=== PATIENT | female | born 1935 | race Caucasian/White ===

== ENCOUNTER → 2016-05-04 | Outpatient (CLI) | payer MEDICARE, OTHER | END | disposition home or self-care (01) | LOC: PCVCCLINIC 12:00 | PROVIDERS: ATTEND Internal Medicine Cardiovascular Disease | DX: I25.10 Atherosclerotic heart disease of native coronary artery without angina pectoris (principal); I10 Essential (primary) hypertension; E78.00 Pure hypercholesterolemia, unspecified | CPT/HCPCS: 80061; 93005; G0463 ==

== ENCOUNTER → 2016-07-09 | Outpatient (CLI) | payer MEDICARE, OTHER | END | disposition home or self-care (01) | LOC: PCVCCLINIC 11:20 | PROVIDERS: ATTEND Internal Medicine Cardiovascular Disease | DX: I25.10 Atherosclerotic heart disease of native coronary artery without angina pectoris (principal); I10 Essential (primary) hypertension; E78.00 Pure hypercholesterolemia, unspecified; R07.9 Chest pain, unspecified; R09.89 Other specified symptoms and signs involving the circulatory and respiratory systems | CPT/HCPCS: 93005; G0463 ==

== ENCOUNTER → 2016-07-15 | Outpatient (CLI) | payer MEDICARE, OTHER ==
[~2016-07-15] MED LIST: REGADENOSON 0.4 MG/5 ML DISP.SYRIN. IV ONE
== END | disposition home or self-care (01) ==
LOC: PCVCIMAG 08:26
PROVIDERS: ATTEND Internal Medicine Cardiovascular Disease
DX: I65.23 Occlusion and stenosis of bilateral carotid arteries (principal); I25.10 Atherosclerotic heart disease of native coronary artery without angina pectoris; R07.9 Chest pain, unspecified; I44.7 Left bundle-branch block, unspecified; Z95.5 Presence of coronary angioplasty implant and graft
CPT/HCPCS: 78452; 93017; 93880; A9500; J2785

== ENCOUNTER → 2017-01-25 | Outpatient (CLI) | payer MEDICARE, OTHER | END | disposition home or self-care (01) | LOC: PCVCCLINIC 13:00 | PROVIDERS: ATTEND Internal Medicine Cardiovascular Disease | DX: I25.10 Atherosclerotic heart disease of native coronary artery without angina pectoris (principal); I10 Essential (primary) hypertension; I77.9 Disorder of arteries and arterioles, unspecified; I87.2 Venous insufficiency (chronic) (peripheral); E78.00 Pure hypercholesterolemia, unspecified; E11.9 Type 2 diabetes mellitus without complications; E03.9 Hypothyroidism, unspecified; Z79.82 Long term (current) use of aspirin; Z79.84 Long term (current) use of oral hypoglycemic drugs; Z88.2 Allergy status to sulfonamides | CPT/HCPCS: 80061; 93005; G0463 ==

== ENCOUNTER → 2017-07-08 | Outpatient (CLI) | payer MEDICARE, OTHER | END | disposition home or self-care (01) | LOC: PCVCIMAG 11:02 | DX: I25.10 Atherosclerotic heart disease of native coronary artery without angina pectoris (principal); I10 Essential (primary) hypertension; R00.1 Bradycardia, unspecified; R07.89 Other chest pain; Z95.5 Presence of coronary angioplasty implant and graft | CPT/HCPCS: 93306 ==

== ENCOUNTER → 2017-11-10 | Outpatient (CLI) | payer MEDICARE, OTHER | END | disposition home or self-care (01) | LOC: PCVCIMAG 12:38 | DX: I25.10 Atherosclerotic heart disease of native coronary artery without angina pectoris (principal); I10 Essential (primary) hypertension; I49.5 Sick sinus syndrome; E78.00 Pure hypercholesterolemia, unspecified; I77.9 Disorder of arteries and arterioles, unspecified; I87.2 Venous insufficiency (chronic) (peripheral); M79.89 Other specified soft tissue disorders; Z95.0 Presence of cardiac pacemaker | CPT/HCPCS: 80061; 93005; 93970; G0463 ==

== ENCOUNTER → 2017-11-19 | Outpatient (CLI) | payer MEDICARE, OTHER ==
[~2017-11-19] MED LIST changes: +DIAZEPAM 10 MG TABLET.; +IOHEXOL 300 MG/ML 100ML VIAL.; +IV NORMAL SALINE 500ML BAG 500 ML; +LIDOCAINE 1% PF 30 ML VIAL.; +MIDAZOLAM HCL/PF 2 MG/2 ML VIAL.; -REGADENOSON 0.4 MG/5 ML DISP.SYRIN. IV ONE; +fentaNYL PF VIAL 100 MCG/2 ML VIAL
== END | disposition home or self-care (01) ==
LOC: PCVCINTER 12:12
DX: I87.2 Venous insufficiency (chronic) (peripheral) (principal); I87.309 Chronic venous hypertension (idiopathic) without complications of unspecified lower extremity; I25.10 Atherosclerotic heart disease of native coronary artery without angina pectoris; I10 Essential (primary) hypertension; Z95.0 Presence of cardiac pacemaker; E78.00 Pure hypercholesterolemia, unspecified; I49.5 Sick sinus syndrome
CPT/HCPCS: 36012; 37252; 37253; 75822; 75825; 76937; 99152; 99153; C1751; C1753; C1769; C1894; J1644; J2250; J3010; J7040; Q9967

== ENCOUNTER → 2017-12-27 | Outpatient (CLI) | payer MEDICARE, OTHER ==
[~2017-12-27] MED LIST changes: +ARNICA TOPICAL GEL 1.5OZ TUBE. TP ONE; -DIAZEPAM 10 MG TABLET.; +DIAZEPAM 10 MG TABLET. ONE; +DOXYCYCLINE HYCLATE 100 MG TABLET ONE; -IOHEXOL 300 MG/ML 100ML VIAL.; +IV NORMAL SALINE 1000ML BAG 1,000 ML ONE; -IV NORMAL SALINE 500ML BAG 500 ML; -LIDOCAINE 1% PF 30 ML VIAL.; +LIDOCAINE 1%/EPI 1:100,000 20 ML VIAL. ONE; -MIDAZOLAM HCL/PF 2 MG/2 ML VIAL.; +SODIUM BICARBONATE 50 MEQ/50 ML VIAL. ONE; -fentaNYL PF VIAL 100 MCG/2 ML VIAL
--- NOTE | 2017-12-27 18:35 | PCVCINTER ---
EXAM: LEFT GREAT SAPHENOUS VEIN ENDOVENOUS LASER ABLATION INDICATION: Chronic Venous Insufficiency Class 4a. Leg pain and swelling. Failed conservative therapy including medical grade compression stockings for at least 3 months. Venous hypertension chronic. PROCEDURE: Procedure and risks of endovenous laser ablation including thrombosis, vascular injury, nerve injury, skin necrosis, and infection were discussed with the patient and consent obtained. The left leg was prepped and draped in the normal sterile fashion. Using ultrasound guidance access into the left great saphenous vein was obtained and a 5F 50 cm long catheter was advanced to 2 cm below the saphenofemoral junction. The laser fiber was advanced through the catheter to its tip and the catheter partially retracted. Abundant tumescent anesthesia using a dilute lidocaine solution was given in the perivenous tissues throughout the length of the laser fiber. Ultrasound confirmed good position of the distal tip of the laser fiber as well as direct transcutaneous visualization. The 1470 Dornier laser was set to 6 smiley and a slow continuous pull-back technique employed to deliver 2045 Joules throughout the treated segment. Catheter and fiber were removed and hemostasis obtained. No immediate complications. The leg was dressed and wrapped appropriately and reinforced with a compression stocking. IMPRESSION: Satisfactory endovenous laser ablation of the left great saphenous vein. LOC:[id number]
== END | disposition home or self-care (01) ==
LOC: PCVCINTER 13:02
PROVIDERS: ATTEND Nuclear Medicine Nuclear Cardiology
DX: I83.812 Varicose veins of left lower extremity with pain (principal); I87.2 Venous insufficiency (chronic) (peripheral); I25.10 Atherosclerotic heart disease of native coronary artery without angina pectoris; E11.9 Type 2 diabetes mellitus without complications; I10 Essential (primary) hypertension; E03.9 Hypothyroidism, unspecified; G47.33 Obstructive sleep apnea (adult) (pediatric); Z95.0 Presence of cardiac pacemaker; Z98.890 Other specified postprocedural states; Z82.49 Family history of ischemic heart disease and other diseases of the circulatory system; Z88.2 Allergy status to sulfonamides; Z79.82 Long term (current) use of aspirin; Z79.899 Other long term (current) drug therapy; Z79.84 Long term (current) use of oral hypoglycemic drugs; E78.00 Pure hypercholesterolemia, unspecified; I49.5 Sick sinus syndrome
CPT/HCPCS: 36478; C1751; C1769; C1894; J3490; J7030

== ENCOUNTER → 2018-04-13 | Outpatient (CLI) | payer MEDICARE, OTHER ==
--- NOTE | 2018-04-13 16:02 | PCVCIMAG ---
EXAM: LEFT SUPERFICIAL VENOUS DUPLEX INDICATION: Leg pain and swelling. FINDINGS: Left leg: No thrombus in the common femoral, main femoral, or popliteal veins. These veins are compressible. 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 Left Small Saphenous Vein: At the saphenopopliteal junction the diameter is 5.6 mm, and in the calf it is 3.6 mm. There is significant venous insufficiency/reflux in the lower calf only. Venous insufficiency/reflux duration is 6.6 seconds. IMPRESSION: Satisfactory post ablation change in the left great saphenous vein. Left Small Saphenous Vein: Significant venous insufficiency/reflux is present in the lower calf level only. Vein is diminutive in size. LOC:[id number]
== END | disposition home or self-care (01) ==
LOC: PCVCIMAG 13:51
PROVIDERS: ATTEND Nuclear Medicine Nuclear Cardiology
DX: I87.2 Venous insufficiency (chronic) (peripheral) (principal); I25.10 Atherosclerotic heart disease of native coronary artery without angina pectoris; I10 Essential (primary) hypertension; I49.5 Sick sinus syndrome; E78.00 Pure hypercholesterolemia, unspecified; E11.9 Type 2 diabetes mellitus without complications; E03.9 Hypothyroidism, unspecified; G47.33 Obstructive sleep apnea (adult) (pediatric); Z79.82 Long term (current) use of aspirin
CPT/HCPCS: 93971; G0463

== ENCOUNTER → 2018-07-18 | Outpatient (CLI) | payer MEDICARE, OTHER | END | disposition home or self-care (01) | LOC: PCVCCLINIC 14:45 | PROVIDERS: ATTEND Internal Medicine Cardiovascular Disease | DX: I25.10 Atherosclerotic heart disease of native coronary artery without angina pectoris (principal); I87.2 Venous insufficiency (chronic) (peripheral); I10 Essential (primary) hypertension; I49.5 Sick sinus syndrome; E78.00 Pure hypercholesterolemia, unspecified; I65.23 Occlusion and stenosis of bilateral carotid arteries; E78.5 Hyperlipidemia, unspecified; Z95.0 Presence of cardiac pacemaker | CPT/HCPCS: 36415; 80061; 93280; G0463 ==

== ENCOUNTER → 2019-01-25 | Outpatient (CLI) | payer MEDICARE, OTHER ==
--- NOTE | 2019-01-25 11:53 | PCVCIMAG ---
EXAM: BILATERAL CAROTID DUPLEX INDICATION: Carotid Occlusive Disease. FINDINGS: Doppler Measurements (centimeters per second): RIGHT: Peak CCA-98, Peak ECA-108, Diastolic ICA-17, Peak ICA-95, ICA/CCA Ratio-1.0. LEFT: Peak CCA-92, Peak ECA-154, Diastolic ICA-17, Peak ICA-118, ICA/CCA Ratio-1.3. RIGHT CAROTID: The carotid bulb has moderate plaque. The proximal internal carotid artery shows <40% stenosis. The common carotid artery shows no significant stenosis. The external carotid artery shows no significant stenosis. LEFT CAROTID: The carotid bulb has moderate plaque. The proximal internal carotid artery shows <40% stenosis. The common carotid artery shows no significant stenosis. The external carotid artery shows 50% stenosis. Antegrade flow in both vertebral arteries. IMPRESSION: <40% stenosis of the right internal carotid artery with moderate plaque. <40% stenosis of the left internal carotid artery with moderate plaque. LOC:[id number]
--- NOTE | 2019-01-25 12:34 | PCVCIMAG ---
APPROVED REPORT Study performed: 01/25/2019 10:32:29 EXAM: Comprehensive 2D, Doppler, and color-flow Echocardiogram Patient Location: Echo lab Status: routine BSA: 2.12 HR: 60 bpmBP: 112/72 mmHg Rhythm: Pacemaker Other Information Study Quality: Adequate Risk Factors: Cardiac Risk Factors: HTN Indications Pacemaker CAD obesity 2D Dimensions IVSd: 14.29 (7-11mm) LVDd: 41.41 mm PWd: 13.47 (7-11mm)Ascending Ao: 31.17 (22-36mm) LVDs: 31.96 (25-40mm) Left Atrium: 42.64 (27-40mm) Aortic Root: 36.41 mm LV Single Plane 4CH: 46.75 % LV Single Plane 2CH: 59.15 % Biplane EF: 52.6 % Volumes Left Atrial Volume (Systole) Single Plane 4CH: 76.96 mLSingle Plane 2CH: 77.14 mL LA ESV Index: 37.00 mL/m2 Aortic Valve AoV Peak Joseluis.: 1.69 m/s AO Peak Gr.: 11.46 mmHgLVOT Max P.24 mmHg LVOT Max V: 1.03 m/s Mitral Valve E/A Ratio: 0.6 MV Decel. Time: 349.91 ms MV E Max Joseluis.: 0.79 m/s MV A Joseluis.: 1.25 m/s IVRT: 117.65 ms Pulmonary Valve PV Peak Joseluis.: 1.05 m/sPV Peak Gr.: 4.38 mmHg Pulmonary Vein P Vein S: 0.25 m/sP Vein A: 0.33 m/s P Vein D: 0.34 m/sP Vein A Dur.: 131.5 msec P Vein S/D Ratio: 0.74 Tricuspid Valve TR Peak Joselusi.: 2.93 m/s TR Peak Gr.: 34.23 mmHg Left Ventricle The left ventricle is normal size. There is normal LV segmental wall motion. Mild concentric left ventricular hypertrophy. Left ventricular systolic function is borderline lower limits of normal. LVEF is 50%. Grade I - abnormal relaxation pattern. Right Ventricle The right ventricle is normal size. The right ventricular systolic function is normal. Pacemaker lead is present in the right ventricle. Atria Left atrium is mildly dilated. The right atrium size is normal. Pacemaker lead is present in the right atrium. Aortic Valve The aortic valve is normal in structure. No aortic regurgitation is present. There is no aortic valvular stenosis. Mitral Valve Mild mitral annular calcification. Mild mitral regurgitation. No evidence of mitral valve stenosis. Tricuspid Valve The tricuspid valve is normal in structure. Mild-moderate tricuspid regurgitation with PAP of 41 mmHg. Pulmonic Valve The pulmonary valve is normal in structure. Trace pulmonic regurgitation. Great Vessels The aortic root is normal in size. IVC is normal in size and collapses >50% with inspiration. Pericardium There is no pericardial effusion. There is no pleural effusion. <Conclusion> The left ventricle is normal size. Mild concentric left ventricular hypertrophy. LVEF is 50%. Grade I - abnormal relaxation pattern. The right ventricle is normal size. Pacemaker lead is present in the right ventricle. Left atrium is mildly dilated. The right atrium size is normal. Pacemaker lead is present in the right atrium. The aortic valve is normal in structure. Mild mitral regurgitation. Mild-moderate tricuspid regurgitation with PAP of 41 mmHg. The aortic root is normal in size. There is no pericardial effusion.
== END | disposition home or self-care (01) ==
LOC: PCVCIMAG 09:47
PROVIDERS: ATTEND Internal Medicine Cardiovascular Disease
DX: I65.23 Occlusion and stenosis of bilateral carotid arteries (principal); I08.1 Rheumatic disorders of both mitral and tricuspid valves; E78.00 Pure hypercholesterolemia, unspecified; I11.9 Hypertensive heart disease without heart failure; I87.2 Venous insufficiency (chronic) (peripheral); I25.10 Atherosclerotic heart disease of native coronary artery without angina pectoris; I49.5 Sick sinus syndrome; E78.5 Hyperlipidemia, unspecified; E11.9 Type 2 diabetes mellitus without complications; Z95.0 Presence of cardiac pacemaker; Z79.82 Long term (current) use of aspirin
CPT/HCPCS: 36415; 80061; 93280; 93306; 93880; G0463